=== PATIENT | female | born 2000 | race Caucasian/White ===

== ENCOUNTER 2018-04-05 18:57 | Emergency (ER) | payer OTHER ==
[~2018-04-05] VITALS: Ht 170.2 cm; Wt 70.3 kg
[2018-04-05 19:05] VITALS: BP_SYST 117
--- NOTE | 2018-04-05 19:40 | NUR ---
Patient to ER bed 4 to gown for evaluation. Side rails up. Report given to Gal SHERIDAN.
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
--- NOTE | 2018-04-05 19:50 | NUR ---
ED MD Caruso at bedside for medical evaluation.
[2018-04-05] MEDS ORDERED: KETOROLAC TROMETHAMINE 30 MG VIAL IM ONE (20:00)
[2018-04-05] MEDS ORDERED: CYCLOBENZAPRINE HCL 10 MG TABLET (FLEXERIL) PO ONE (20:00)
--- NOTE | 2018-04-05 20:37 | NUR ---
ED MD Caruso at bedside reassessing patient.
[2018-04-05 21:00] VITALS: BP_SYST 117
--- NOTE | 2018-04-05 21:00 | NUR ---
Patient given written and verbal discharge instructions and verbalizes understanding. ER MD discussed with patient the results and treatment provided. Patient in stable condition. ID arm band removed. Rx of Flexeril and Naproxen given. Patient educated on pain management and to follow up with PMD. Pain Scale 3/10. Opportunity for questions provided and answered. Medication side effect fact sheet provided.
== END 2018-04-05 21:00 | disposition home or self-care (01) ==
LOC: SED 18:57
DX: S16.1XXA Strain of muscle, fascia and tendon at neck level, initial encounter (principal); R51 Headache; V89.2XXA Person injured in unspecified motor-vehicle accident, traffic, initial encounter; Y93.89 Activity, other specified; Y92.410 Unspecified street and highway as the place of occurrence of the external cause; Y99.8 Other external cause status
CPT/HCPCS: 96372; 99283; J1885

== ENCOUNTER 2023-03-01 15:48 | Emergency (ER) | payer OTHER ==
[~2023-03-01] VITALS: Ht 172.7 cm; Wt 66.2 kg
[2023-03-01 16:35] VITALS: BP_SYST 100; PULSE 88; RESP 16; TEMP 97.7; O2SAT 97
[2023-03-01] MEDS ORDERED: DICL20GE TP (17:45)
[2023-03-01 17:57] VITALS: BP_SYST 101; PULSE 75; RESP 16; TEMP 97.7; O2SAT 97
== END 2023-03-01 17:56 | disposition home or self-care (01) ==
LOC: SED 15:48
DX: S70.361A Insect bite (nonvenomous), right thigh, initial encounter (principal); Z79.899 Other long term (current) drug therapy; W57.XXXA Bitten or stung by nonvenomous insect and other nonvenomous arthropods, initial encounter; Y93.89 Activity, other specified; Y92.89 Other specified places as the place of occurrence of the external cause; Y99.8 Other external cause status
CPT/HCPCS: 81025; 99283